=== PATIENT | male | born 1970 | race Caucasian/White ===

== ENCOUNTER → 2016-08-28 | Outpatient (CLI) | payer BC ==
--- NOTE | 2016-08-28 17:37 | CT ---
EXAMINATION TYPE: CT abdomen pelvis wo con DATE OF EXAM: 08/28/2016 5:22 PM COMPARISON: 04/25/2016 HISTORY: Bilateral pelvic pain and difficulty urinating CT DLP: 625.2 mGycm Automated exposure control for dose reduction was used. TECHNIQUE: Helical acquisition of images was performed from the lung bases through the pelvis. FINDINGS: Lung bases are clear. There is no pleural effusion. Heart size is normal. Liver appears normal. Bile ducts are not dilated. There is no pancreatic mass. Gallbladder appears no rmal. There is no sign of a splenic mass. Spleen is enlarged and measures 15.5 cm. There is no adrenal mass. Kidneys have normal size and contour. There is no hydronephrosis. Ureters a re not dilated. There is a 5 mm calculus in the lower pole left kidney. There are scattered multiple retroperitoneal lymph nodes that measure up to 1 cm. There is no ascites. Bladder distends smoothly. There is no sign of a pelvic mass. There are clips ap parently from right inguinal hernia surgery. I see no intestinal wall thickening. There are no dilated loops. Appendix appears normal. There are s ome enlarged celiac lymph nodes that measure up to 1.5 cm. There are scattered colonic diverticula. I see no bony destructive process. IMPRESSION: NONOBSTRUCTING LEFT RENAL CALCULUS. THERE IS MILD CELIAC ADENOPATHY UNCHANGED COMPARED TO LAST EXAM. STABLE SPLENOMEGALY. Mild stable abdominal para-aortic lymphadenopathy.
[2016-08-28 17:46] LABS: Basophils % (A) 1 %; CH 25.6; Eosinophils # (A) 0.1 k/uL (0-0.7); Eosinophils % (A) 2 %; HCT 38.9 % (39.0-53.0); HDW 3.04; HGB 12.8 gm/dL (13.0-17.5); Luc # (Auto) 0.08; Luc % (Auto) 3; Lymphocytes % (A) 32 %; MCH 25.5 pg (25.0-35.0); MCHC 32.8 g/dL (31.0-37.0); MCV 77.8 fL (80.0-100.0); Mean Platelet Volume 6.4; Monocytes # (A) 0.2 k/uL (0-1.0); Monocytes % (A) 7 %; Neutrophils # (A) 1.7 k/uL (1.3-7.7); Neutrophils % (A) 56 %; RDW 13.6 % (11.5-15.5); WBC (Perox) 2.91
[2016-08-28 17:52] LABS: ALT 36 U/L (21-72); AST 24 U/L (17-59); Alkaline Phosphatase 57 U/L (38-126); Anion Gap 11 mmol/L; Blood Urea Nitrogen 20 mg/dL (9-20); Carbon Dioxide 28 mmol/L (22-30); Chloride 103 mmol/L (98-107); Glucose 133 mg/dL (74-99); Non-African American GFR(MDRD) 54 (>60 ml/min/1.73 sqM); Potassium 4.5 mmol/L (3.5-5.1); Sodium 142 mmol/L (137-145); Total Bilirubin 0.9 mg/dL (0.2-1.3); Total Protein 7.3 g/dL (6.3-8.2)
[2016-08-28 18:06] LABS: Appearance,Urine Clear (Clear); Bilirubin,Urine Negative (Negative); Glucose,Urine (UA) Negative (Negative); Ketones,Urine Negative (Negative); Leukocyte Esterase,Urine Negative (Negative); Nitrite,Urine Negative (Negative); Protein,Urine Negative (Negative); Specific Gravity,Urine 1.015 (1.001-1.035); UA Billing (MACRO vs. MICRO) CHEM; Urobilinogen,Urine <2.0 mg/dL (<2.0)
== END ==
LOC: RADCTMAIN 17:05
PROVIDERS: ATTEND Internal Medicine Critical Care Medicine
DX: N20.0 Calculus of kidney (principal); R59.9 Enlarged lymph nodes, unspecified; R16.1 Splenomegaly, not elsewhere classified
CPT/HCPCS: 36415; 74176; 80053; 81003; 85025; 87086

== ENCOUNTER 2017-04-08 11:52 | Emergency (ER) | payer BC ==
[2017-04-08 12:15] VITALS: TEMP 98.3
[2017-04-08] MEDS ORDERED: SODIUM CHLORIDE 0.9% 500 ML IV STA (12:17)
[2017-04-08] MEDS ORDERED: SODIUM CHLORIDE 0.9% 1,000 ML IV STA ×3 (12:17→15:18)
[2017-04-08] MEDS ORDERED: MORPHINE SULFATE 10 MG/ML SYRINGE IV STA (12:17)
[2017-04-08] MEDS ORDERED: KETOROLAC 30 MG/ML 1 ML VIAL IVP STA (12:17)
--- NOTE | 2017-04-08 12:17 | ED ---
General Adult HPI <Farhat Gonzalez - Last Filed: 04/08/17 15:19> - General Source: patient, RN notes reviewed, old records reviewed Mode of arrival: ambulatory Limitations: no limitations <Stanley Colón - Last Filed: 04/08/17 16:49> - General Chief complaint: Abdominal Pain Stated complaint: Back pain Time Seen by Provider: 04/08/17 12:16 - History of Present Illness Initial comments: This is a 47-year-old male to the ER for evaluation today. This patient presents evaluation regarding severe left flank pain. Patient states he has history of kidney stones. Also has recent diagnosis of shingles which is taking Clinton for which is not helping his pain. Patient's pain is left flank and severe. Positive nausea no vomiting no bowel or bladder issues no fevers ( Stanley Colón) - Related Data Home Medications Medication Instructions Recorded Confirmed Pantoprazole Sodium 40 mg PO HS 09/24/14 04/08/17 Dulaglutide [Trulicity] 1.5 mg SQ TH 04/08/17 04/08/17 Fenofibric Acid 105mg 105 mg PO HS 04/08/17 04/08/17 Hydrocodone/Acetaminophen [Clinton 1 tab PO BID PRN 04/08/17 04/08/17 10-325] Insulin Aspart [Novolog Flexpen] 16 unit SQ AC-TID 04/08/17 04/08/17 Insulin Degludec [Tresiba 60 unit SQ DAILY 04/08/17 04/08/17 Flextouch U-200] Losartan Potassium [Cozaar] 25 mg PO HS 04/08/17 04/08/17 metFORMIN HCL 1,000 mg PO BID 04/08/17 04/08/17 valACYclovir HCL [Valtrex] 1,000 mg PO TID 04/08/17 04/08/17 Previous Rx's Medication Instructions Recorded Ondansetron Odt [Zofran ODT] 4 mg PO Q8HR PRN #10 tab 04/08/17 oxyCODONE HCL/ACETAMINOPHEN 1 tab PO Q6HR PRN #10 tab 04/08/17 [Percocet 5-325 mg] Allergies Allergy/AdvReac Type Severity Reaction Status Date / Time No Known Allergies Allergy Verified 04/08/17 13:18 Review of Systems ROS Other: All systems not noted in ROS Statement are negative. <Farhat Gonzalez - Last Filed: 04/08/17 15:19> ROS Other: All systems not noted in ROS Statement are negative. <Stanley Colón - Last Filed: 04/08/17 16:49> ROS Statement: Those systems with pertinent positive or pertinent negative responses have been documented in the HPI. Past Medical History Past Medical History: Diabetes Mellitus, GERD/Reflux Additional Past Medical History / Comment(s): SARCOIDOSIS LUNG/ABD, HX RENAL CALCULUS History of Any Multi-Drug Resistant Organisms: None Reported Past Surgical History: Hernia Repair, Tonsillectomy Additional Past Surgical History / Comment(s): LAPROSCOPY, BIOPSIES, LITHOTRIPSY Past Anesthesia/Blood Transfusion Reactions: No Reported Reaction Past Psychological History: No Psychological Hx Reported Smoking Status: Never smoker Past Alcohol Use History: None Reported Past Drug Use History: None Reported <Stanley Colón - Last Filed: 04/08/17 16:49> General Exam Limitations: no limitations General appearance: alert, in no apparent distress Head exam: Present: atraumatic, normocephalic, normal inspection Eye exam: Present: normal appearance, PERRL, EOMI. Absent: scleral icterus, conjunctival injection, periorbital swelling ENT exam: Present: normal exam, mucous membranes moist Neck exam: Present: normal inspection. Absent: tenderness, meningismus, lymphadenopathy Respiratory exam: Present: normal lung sounds bilaterally. Absent: respiratory distress, wheezes, rales, rhonchi, stridor Cardiovascular Exam: Present: regular rate, normal rhythm, normal heart sounds. Absent: systolic murmur, diastolic murmur, rubs, gallop, clicks GI/Abdominal exam: Present: soft, normal bowel sounds. Absent: distended, tenderness, guarding, rebound, rigid Extremities exam: Present: normal inspection, full ROM, normal capillary refill. Absent: tenderness, pedal edema, joint swelling, calf tenderness Back exam: Present: normal inspection Neurological exam: Present: alert, oriented X3, CN II-XII intact Psychiatric exam: Present: normal affect, normal mood Skin exam: Present: warm, dry, intact, normal color. Absent: rash <Stanley Colón - Last Filed: 04/08/17 16:49> Course <Farhat Gonzalez - Last Filed: 04/08/17 15:19> <Stanley Colón - Last Filed: 04/08/17 16:49> Vital Signs 04/08/17 04/08/17 04/08/17 12:11 13:55 16:05 Temperature 98.3 F Pulse Rate 107 H 81 83 Respiratory 18 16 18 Rate Blood Pressure 134/76 130/83 122/80 O2 Sat by Pulse 95 96 96 Oximetry - Reevaluation(s) Reevaluation #1: 04/08/17 12:34 patients pain is improved (Stanley Colón) Reevaluation #2: 04/08/17 15:[address] Dugan's request I did enter a Flomax order for 0.4 mg as well as 1 L of IV fluids. (Farhat Gonzalez) Reevaluation #3: 04/08/17 16:[address] Diaz for urology regarding this patient. We'll known to patient, aware (Stanley Colón) Reevaluation #4: 04/08/17 16:49 patient remains with adequate pain control (Stanley Colón) Medical Decision Making - Lab Data Result diagrams: 04/08/17 12:32 04/08/17 12:32 <Farhat Gonzalez - Last Filed: 04/08/17 15:19> - Lab Data Result diagrams: 04/08/17 12:32 04/08/17 12:32 - Radiology Data Radiology results: report reviewed (CT and pelvis is positive for kidney stone) , image reviewed <Stanley Colón - Last Filed: 04/08/17 16:49> - Medical Decision Making 40 not ER for evaluation of flank pain. Severe flank pain. Patient has positive kidney stone. Patient can be discharged home as his pain is under well control at this point. Patient will do outpatient procedure tomorrow by Dr. Mtz, urology (Stanley Colón) - Lab Data Lab Results 04/08/17 04/08/17 04/08/17 Range/Units 12:32 12:32 12:32 WBC 3.2 L (3.8-10.6) k/uL RBC 4.90 (4.30-5.90) m/uL Hgb 13.0 (13.0-17.5) gm/dL Hct 38.4 L (39.0-53.0) % MCV 78.3 L (80.0-100.0) fL MCH 26.5 (25.0-35.0) pg MCHC 33.9 (31.0-37.0) g/dL RDW 15.4 (11.5-15.5) % Plt Count 157 (150-450) k/uL Neutrophils % 57 % Lymphocytes % 27 % Monocytes % 9 % Eosinophils % 3 % Basophils % 1 % Neutrophils # 1.8 (1.3-7.7) k/uL Lymphocytes # 0.9 L (1.0-4.8) k/uL Monocytes # 0.3 (0-1.0) k/uL Eosinophils # 0.1 (0-0.7) k/uL Basophils # 0.0 (0-0.2) k/uL Sodium 139 (137-145) mmol/L Potassium 4.7 (3.5-5.1) mmol/L Chloride 104 (98-107) mmol/L Carbon Dioxide 25 (22-30) mmol/L Anion Gap 10 mmol/L BUN 16 (9-20) mg/dL Creatinine 1.38 H (0.66-1.25) mg/dL Est GFR (MDRD) Af Amer >60 (>60 ml/min/1.73 sqM) Est GFR (MDRD) Non-Af 55 (>60 ml/min/1.73 sqM) Glucose 173 H (74-99) mg/dL Calcium 9.7 (8.4-10.2) mg/dL Total Bilirubin 1.0 (0.2-1.3) mg/dL AST 33 (17-59) U/L ALT 52 (21-72) U/L Alkaline Phosphatase 56 (38-126) U/L Total Protein 7.1 (6.3-8.2) g/dL Albumin 4.5 (3.5-5.0) g/dL Amylase 57 (30-110) U/L Lipase 119 (23-300) U/L Urine Color Light Yellow Urine Appearance Clear (Clear) Urine pH 6.0 (5.0-8.0) Ur Specific Tucker 1.009 (1.001-1.035) Urine Protein Negative (Negative) Urine Glucose (UA) Negative (Negative) Urine Ketones Negative (Negative) Urine Blood Moderate H (Negative) Urine Nitrite Negative (Negative) Urine Bilirubin Negative (Negative) Urine Urobilinogen <2.0 (<2.0) mg/dL Ur Leukocyte Esterase Negative (Negative) Urine RBC 19 H (0-5) /hpf Urine Bacteria Rare H (None) /hpf Disposition <Farhat Gonzalez - Last Filed: 04/08/17 15:19> <Stanley Colón - Last Filed: 04/08/17 16:49> Clinical Impression: Left ureteral calculus Disposition: HOME SELF-CARE Condition: Good Instructions: Kidney Stones (ED) Prescriptions: Ondansetron Odt [Zofran ODT] 4 mg PO Q8HR PRN #10 tab PRN Reason: nausea/vomiting oxyCODONE HCL/ACETAMINOPHEN [Percocet 5-325 mg] 1 tab PO Q6HR PRN #10 tab PRN Reason: Pain Referrals: Lonnie Hernandez MD [STAFF PHYSICIAN] - 1-2 days
[2017-04-08 12:46] LABS: Basophils % (A) 1 %; CH 26.6; CHCM 34.1; Eosinophils # (A) 0.1 k/uL (0-0.7); Eosinophils % (A) 3 %; HCT 38.4 % (39.0-53.0); HDW 2.92; Luc # (Auto) 0.12; Luc % (Auto) 4; Lymphocytes # (A) 0.9 k/uL (1.0-4.8); Lymphocytes % (A) 27 %; MCH 26.5 pg (25.0-35.0); MCHC 33.9 g/dL (31.0-37.0); MCV 78.3 fL (80.0-100.0); Mean Platelet Volume 7.2; Monocytes # (A) 0.3 k/uL (0-1.0); Monocytes % (A) 9 %; Neutrophils # (A) 1.8 k/uL (1.3-7.7); Neutrophils % (A) 57 %; RDW 15.4 % (11.5-15.5); WBC 3.2 k/uL (3.8-10.6); WBC (Perox) 3.32
[2017-04-08 12:57] LABS: ALT 52 U/L (21-72); AST 33 U/L (17-59); Alkaline Phosphatase 56 U/L (38-126); Amylase 57 U/L (30-110); Anion Gap 10 mmol/L; Blood Urea Nitrogen 16 mg/dL (9-20); Calcium 9.7 mg/dL (8.4-10.2); Carbon Dioxide 25 mmol/L (22-30); Chloride 104 mmol/L (98-107); Glucose 173 mg/dL (74-99); Non-African American GFR(MDRD) 55 (>60 ml/min/1.73 sqM); Potassium 4.7 mmol/L (3.5-5.1); Sodium 139 mmol/L (137-145); Total Protein 7.1 g/dL (6.3-8.2)
[2017-04-08 13:18] LABS: Appearance,Urine Clear (Clear); Bacteria,Urine Rare /hpf; Bilirubin,Urine Negative (Negative); Glucose,Urine (UA) Negative (Negative); Ketones,Urine Negative (Negative); Leukocyte Esterase,Urine Negative (Negative); Nitrite,Urine Negative (Negative); Particle Count 100; Protein,Urine Negative (Negative); RBC,Urine 19 /hpf (0-5); Specific Gravity,Urine 1.009 (1.001-1.035); UA Billing (MACRO vs. MICRO) MICRO; Urobilinogen,Urine <2.0 mg/dL (<2.0)
--- NOTE | 2017-04-08 15:04 | CT ---
EXAMINATION TYPE: CT abdomen pelvis wo con DATE OF EXAM: 04/08/2017 COMPARISON: NONE INDICATION: Left back pain that radiates into anterior pelvic DLP: 1151 mGycm, Automated exposure control for dose reduction was used. CONTRAST: 0 mL of Omnipaque 300. Study performed without Oral Contrast TECHNIQUE: Axial images were obtained from above the diaphragm to the pubic rami in the axial plane a t 5 mm thick sections. Reconstructed images are reviewed on the computer in the coronal plane. FINDINGS: Limited CT sections are obtained the lung bases. Some mild streak atelectasis is likely present.. CT ABDOMEN: Liver: Normal Spleen: Normal Pancreas: Normal Adrenal glands: The adrenal glands are normal. Gallbladder: Normal Kidneys: No masses are evident. No hydronephrosis is present. No cysts are present. There is a 0.3 cm nonobstructing renal stone at the superior pole right kidney. No hydronephrosis or hydroureter th e right kidney is evident. There is moderate left hydronephrosis and left hydroureter. A nonobstructing mid lateral 0.3 cm calci fication is within the mid left kidney. Hydroureter extends to an obstructing ureteral stone measurin g 0.5 cm transverse within the proximal ureter, series 3 image 89. No distal hydroureter is evident. Aorta: Normal Inferior vena cava: Normal. CT PELVIS: Loops of bowel within the abdomen and pelvis are normal. Study is without oral contrast limiting the evaluation. Appendix: Normal as visualized. Urinary bladder: Normal. Genitourinary structures: There is some prominence of the prostate. Prostate calcification is present . Right inguinal fat-containing hernia is present. Osseous structures: No suspicious lytic or sclerotic lesions. IMPRESSIONS: 1. 0.5 cm obstructing proximal left ureteral stone with moderate left hydroureter and hydronephrosis . 2. Nonobstructing punctate 0.3 cm bilateral renal stones.
[2017-04-08] MEDS ORDERED: TAMSULOSIN 0.4 MG CAP.ER.24H PO STA (15:18)
[2017-04-08 16:06] VITALS: BP 122/80; PULSE 83; RESP 18
[2017-04-08] MEDS ORDERED: ONDANSETRON 4 MG/2 ML VIAL IVP STA (16:23)
== END 2017-04-08 17:20 | disposition home or self-care (01) ==
LOC: EC 11:52
DX: N20.1 Calculus of ureter (principal); K21.9 Gastro-esophageal reflux disease without esophagitis; E11.9 Type 2 diabetes mellitus without complications; Z79.4 Long term (current) use of insulin; Z79.899 Other long term (current) drug therapy
CPT/HCPCS: 99284; 96374; 96375 ×2; 96361 ×2; 36415; 80053; 82150; 83690; 85025; 81001; 87086; 74176; J2270; J2405; J1885

== ENCOUNTER → 2017-11-25 | Outpatient (CLI) | payer BC ==
[2017-11-25 15:44] LABS: Basophils % (A) 1 %; Eosinophils # (A) 0.1 k/uL (0-0.7); Eosinophils % (A) 3 %; HCT 38.4 % (39.0-53.0); HGB 13.3 gm/dL (13.0-17.5); Lymphocytes # (A) 0.8 k/uL (1.0-4.8); Lymphocytes % (A) 28 %; MCH 26.5 pg (25.0-35.0); MCHC 34.5 g/dL (31.0-37.0); MCV 76.8 fL (80.0-100.0); Mean Platelet Volume 6.5; Monocytes # (A) 0.2 k/uL (0-1.0); Monocytes % (A) 6 %; Neutrophils # (A) 1.9 k/uL (1.3-7.7); Neutrophils % (A) 61 %; Platelet Count 149 k/uL (150-450); RDW 13.8 % (11.5-15.5); WBC 3.1 k/uL (3.8-10.6)
[2017-11-25 15:58] LABS: Albumin 4.7 g/dL (3.5-5.0); Calcium 10.4 mg/dL (8.4-10.2); Potassium 4.6 mmol/L (3.5-5.1); Total Bilirubin 0.6 mg/dL (0.2-1.3); Total Protein 7.3 g/dL (6.3-8.2)
[2017-11-25 16:43] LABS: Erythrocyte Sedimentation Rate 7 mm/hr (0-15)
--- NOTE | 2017-11-25 16:51 | CT ---
EXAMINATION TYPE: CT CervThoracic spine w con DATE OF EXAM: 11/25/2017 COMPARISON: NONE HISTORY: Mid back pain with pain radiating into right arm and leg CT DLP: 1722 mGycm Automated exposure control for dose reduction was used. CONTRAST: Performed with IV Contrast, patient injected with 100 mL of Isovue 300. FINDINGS: The cervical and thoracic vertebra have fairly normal spacing and alignment. There is mild posterior endplate spur formation at C6-7. There is developmentally adequate spinal canal. There is no spinal s tenosis. Skull base appears intact. There is bilateral arterial flow in the vertebral arteries. I see no bony destructive process. There is no thoracic paraspinal mass. The posterior elements appear int act. Visualized lung matos are clear of consolidation. IMPRESSION: MILD SPONDYLOTIC CHANGE AT C6-7. NO EVIDENCE OF METASTATIC DISEASE. NO FRACTURE. THERE IS SLIGHT IMPI NGEMENT OF THE NEURAL FORAMINA AT C6-7 DUE TO SPUR FORMATION. THE OTHER CERVICAL AND THORACIC NEURAL FORAMINA APPEAR NORMAL.
== END | disposition home or self-care (01) ==
LOC: RADCTMAIN 15:18
PROVIDERS: ATTEND Internal Medicine Critical Care Medicine
DX: M54.2 Cervicalgia (principal); L02.91 Cutaneous abscess, unspecified
CPT/HCPCS: 80053; 85652; 85025; 72129; 72126; 36415; Q9967

== ENCOUNTER → 2018-05-13 | Outpatient (CLI) | payer BC ==
[2018-05-13 14:31] LABS: Basophils % (A) 1 %; Eosinophils # (A) 0.1 k/uL (0-0.7); Eosinophils % (A) 3 %; HCT 40.3 % (39.0-53.0); HGB 13.5 gm/dL (13.0-17.5); Lymphocytes # (A) 0.9 k/uL (1.0-4.8); Lymphocytes % (A) 27 %; MCH 26.3 pg (25.0-35.0); MCHC 33.4 g/dL (31.0-37.0); MCV 78.6 fL (80.0-100.0); Mean Platelet Volume 6.5; Monocytes # (A) 0.2 k/uL (0-1.0); Monocytes % (A) 7 %; Neutrophils # (A) 1.9 k/uL (1.3-7.7); Neutrophils % (A) 60 %; Platelet Count 134 k/uL (150-450); RBC 5.12 m/uL (4.30-5.90); RDW 13.7 % (11.5-15.5); WBC 3.2 k/uL (3.8-10.6)
[2018-05-13 19:08] LABS: T4, Free (Free Thyroxine) 1.4 ng/dL (0.80-1.80)
[2018-05-13 19:22] LABS: Albumin 4.7 g/dL (3.80-4.90); Albumin/Globulin Ratio 2.76 (1.20-2.10); Anion Gap 5.8 mmol/L (4.00-12.00); Calcium 9.6 mg/dL (8.7-10.3); Carbon Dioxide 30.2 mmol/L (21.6-31.8); Globulin 1.7 g/dL (2.1-3.7); LDL Cholesterol,Calculated 86.6 mg/dL (0.0-131.0); Potassium 4.5 mmol/L (3.5-5.5); Total Bilirubin 0.5 mg/dL (0.2-1.2); Total Protein 6.4 g/dL (6.2-8.2); VLDL Calculation 49.4 mg/dL (5.00-40.00)
[2018-05-14 00:50] LABS: Hemoglobin A1C 7.3 % (4.0-6.0)
== END ==
LOC: LABWHC1 12:42
PROVIDERS: ATTEND Internal Medicine Critical Care Medicine
DX: D86.9 Sarcoidosis, unspecified (principal); E11.9 Type 2 diabetes mellitus without complications
CPT/HCPCS: 36415; 80053; 80061; 82164; 82306; 82550; 83036; 84153; 84439; 84443; 85025

== ENCOUNTER → 2020-08-04 | Outpatient (CLI) | payer OTHER ==
[2020-08-04 11:11] LABS: Basophils % (A) 1 %; Eosinophils # (A) 0.1 k/uL (0-0.7); Eosinophils % (A) 2 %; HCT 42.2 % (39.0-53.0); HGB 14.7 gm/dL (13.0-17.5); Lymphocytes % (A) 29 %; MCH 27.1 pg (25.0-35.0); MCHC 34.8 g/dL (31.0-37.0); MCV 78.1 fL (80.0-100.0); Mean Platelet Volume 6.6; Monocytes # (A) 0.3 k/uL (0-1.0); Monocytes % (A) 7 %; Neutrophils % (A) 59 %; Platelet Count 145 k/uL (150-450); RDW 13.4 % (11.5-15.5); WBC 3.4 k/uL (3.8-10.6)
--- NOTE | 2020-08-04 11:11 | CT ---
EXAMINATION TYPE: CT chest wo con DATE OF EXAM: 08/04/2020 COMPARISON: CT chest April 15, 2016. HISTORY: follow up sarcoid CT DLP: 403.6 mGycm. Automated Exposure Control for Dose Reduction was Utilized. TECHNIQUE: CT scan of the thorax is performed without IV contrast. FINDINGS: LUNGS: The lungs remain grossly clear, there is no concerning new parenchymal mass or nodule identifi ed. Stable 3 mm right mid lung nodule axial image 35. No suspicious focal consolidation or groundgla ss opacity. Stable mild linear scarring in the right lower lobe laterally on image 44. No additional significant parenchymal fibrosis. There is no pleural effusion or pneumothorax seen. The tracheobron chial tree is patent. MEDIASTINUM: Lack of IV contrast is noted to limit evaluation for mediastinal and especially hilar ad enopathy. There are no definitive new greater than 1 cm hilar or mediastinal lymph nodes. No cardio megaly or pericardial effusion is seen. Moderate three-vessel coronary artery calcification. Stable p rominent but subcentimeter right pericardial lymph node axial image 47. OTHER: Visualized liver remains heterogeneously hypodense consistent with diffuse fatty infiltration. Splenomegaly is felt to remain present and is only partially imaged. Subareolar symmetric gynecomast ia again seen. New suspicious 2.2 cm lower pole low dense right thyroid nodule coronal image 49. IMPRESSION: 1. No suspicious new adenopathy. No significant new chronic parenchymal fibrotic change. No acute pul monary process. Persistent splenomegaly only partially imaged. 2. New 2.2 cm suspicious right thyroid nodule, follow-up thyroid ultrasound advised to further evalua te and characterize.
[2020-08-04 11:22] LABS: Albumin 4.8 g/dL (3.5-5.0); Calcium 10.6 mg/dL (8.4-10.2); Potassium 4.7 mmol/L (3.5-5.1); Total Bilirubin 1.1 mg/dL (0.2-1.3); Total Protein 7.4 g/dL (6.3-8.2)
[2020-08-04 11:38] LABS: T4, Free (Free Thyroxine) 1.26 ng/dL (0.78-2.19)
[2020-08-04 12:23] LABS: Erythrocyte Sedimentation Rate 7 mm/hr (0-15)
== END | disposition home or self-care (01) ==
LOC: RADCTMAIN 10:32
PROVIDERS: ATTEND Internal Medicine Critical Care Medicine
DX: D86.0 Sarcoidosis of lung (principal); E83.52 Hypercalcemia; D86.9 Sarcoidosis, unspecified
CPT/HCPCS: 71250; 80053; 80061; 82164; 82306; 83970; 84439; 85025; 85652

== ENCOUNTER → 2020-08-30 | Outpatient (CLI) | payer OTHER ==
--- NOTE | 2020-08-30 13:14 | US ---
EXAMINATION TYPE: US thyroid st tissue head/neck DATE OF EXAM: 08/30/2020 COMPARISON: NONE CLINICAL HISTORY: E04.1 Thyroid nodule,. GLAND SIZE: Right Lobe: 4.4 x 1.9 x 2.2 cm Overall Parenchyma: heterogenous Left Lobe: 4.3 x 1.5 x 1.8 cm Overall Parenchyma: heterogeneous Isthmus Thickness: 0.5 cm NODULES RIGHT: # of nodules measured on right: 1 1. 2.5 X 2.2 x 2.1 cm, lower , mixed cystic and solid, isoechoic nodule, which is wider than tall, with smooth margins, echogenic foci. Prior size: No previous LEFT: # of nodules measured on left: 1 1. 1.1 X 0.9 x 0.7 cm, mid , solid or almost completely solid, isoechoic nodule, which is wider jagruti n tall, with ill-defined margins, without echogenic foci. Prior size: No previous ISTHMUS: # of nodules measured in the isthmus: 0 Bilateral neck scanned, no evidence of lymphadenopathy. IMPRESSION: 2017 ACR TI-RADS LEVEL: TR-RADS 4 - Moderately Suspicious: Follow if > 1 cm, FNA if > 1.5 cm *Highest TI-RADS level nodule reported
--- NOTE | 2020-08-30 13:40 | CT ---
EXAMINATION TYPE: CT abdomen pelvis wo con DATE OF EXAM: 08/30/2020 HISTORY: Left sided abdominal and flank pain. History of renal stones. CT DLP: 941 mGycm. Automated Exposure Control for Dose Reduction was Utilized. TECHNIQUE: CT scan of the abdomen and pelvis is performed without oral or IV contrast. COMPARISON: CT abdomen and pelvis April 08, 2017 FINDINGS: Within the limitations of a non-contrast study, the following observations are made. LUNG BASES: Some coronary artery calcification in the RCA distribution. LIVER/GB: Liver is diffusely low dense consistent with diffuse fatty infiltration. PANCREAS: No significant abnormality is seen. SPLEEN: Splenomegaly remains present measuring 16.9 cm long axis coronal image 50. ADRENALS: No significant abnormality is seen. KIDNEYS: There is 2 mm nonobstructing calculus in the left kidney coronal image 60 current study. No right-sided calculus. No hydronephrosis seen bilaterally. BOWEL: No suspicious small or large bowel dilatation. GENITAL ORGANS: Prostate gland upper limits of normal in size with some central calcification. LYMPH NODES: No greater than 1cm abdominal or pelvic lymph nodes are appreciated. Some prominent but subcentimeter lymph nodes throughout the retroperitoneum are redemonstrated and stable. OSSEOUS STRUCTURES: No significant abnormality is seen. OTHER: Moderate-sized fat-containing right inguinal hernia. IMPRESSION: There is 2 mm nonobstructing left renal calculus on current study lower pole level. No hy dronephrosis or obstructing ureteral calculi bilaterally. No new or acute findings. Persistent spleno megaly is noted and may warrant further clinical workup..
== END | disposition home or self-care (01) ==
LOC: RADCTMAIN 12:22
PROVIDERS: ATTEND Internal Medicine Critical Care Medicine
DX: E04.1 Nontoxic single thyroid nodule (principal); N20.0 Calculus of kidney
CPT/HCPCS: 74176; 76536